=== PATIENT | male | born 1945 | race Caucasian/White ===

== ENCOUNTER 2018-08-11 10:55 | Inpatient (IN) | payer MEDICARE, MEDICAID, SELFPAY ==
[2018-07-28 09:45] VITALS: BMI 31.0
[2018-08-11] VITALS (16 sets, daily range): BP systolic 142–175; BP diastolic 50–100; PULSE 69–99; RESP 9–18; TEMP 36.1–36.8; O2SAT 93–99; BMI 31.0
--- NOTE | 2018-08-11 | DI.RAD.S_ITS ---
PROCEDURE: XR LUMBAR SPINE 2-3V INDICATIONS: L4-5 TLIF TECHNIQUE: 2 views of the lumbar spine were acquired. COMPARISON: None. FINDINGS: Spot fluoroscopic images demonstrating L4-L5 posterior spinal fixation with interbody cage. There is expected intraoperative alignment. Dictated by: Bartolome Gunter M.D. on 08/11/2018 at 16:33 Approved by: Bartolome Gunter M.D. on 08/11/2018 at 16:34
[2018-08-11] MEDS: LACTATED RINGERS 1,000 ML 42 ML IV ×2 (11:26→15:00)
[2018-08-11] MEDS: MIDAZOLAM 2 MG/2 ML VIAL 1 MG IV (11:51)
--- NOTE | 2018-08-11 13:03 | PM.PREOP ---
Pre-operative Note Interval Note History & Physical reviewed/Exam performed by Physician: Yes Changes to H&P: No
[2018-08-11] MEDS: CLINDAMYCIN 900 MG/50 ML PIGGYBACK 50 MG IV ×2 (13:36→21:25)
--- NOTE | 2018-08-11 14:21 | SUR.OPER ---
Prone on spine table, head in foam head support, padded chest and pelvic supports, gel pad at knees, lower legs supported by pillows; nipples, genitalia and toes free of pressure, arms secured on foam padded arm boards at <90 degrees abduction. Tape over blanket at thigh secured to table.
[2018-08-11] MEDS: BUPIVACAINE LIPOSOME 266 MG/20 ML VIAL INJ (14:46)
[2018-08-11] MEDS: BUPIVACAINE 0.25% W/ EPI 30 ML VIAL INJ (14:46)
--- NOTE | 2018-08-11 16:15 | P.OP_ITS ---
Operative Date/Time/Diagnoses Date of procedure: 08/11/18 Time of procedure: 13:12 Pre-op diagnosis: 1. L3-4, L4-5 spinal stenosis 2. L3-4, L4-5 spondylosis with radiculopathy Post-op diagnosis: same Procedure & Clinicians Procedure: 1. L4-5 Postero-lateral and posterior interbody fusion 2. L4-5 interbody cage placement. 3. L4-5 decompressive laminectomy with bilateral facetecomies 4. L4-5 Posterior non-segmental instrumentation 5. L3-4 hemilaminectomy 6. [place] of bone marrow from iliac crest 7. Utilization of microsurgical technique and operating microscope Same procedure as scheduled: Yes Indications: Patient has been having chronic back pain and worsening lumbar radiculopathy. Patient failed multiple conservative management with worsening pain weakness and numbness in her lower extremity. Patient has been having difficulty performing activity of daily living. After discussing risks benefits of treatment options, patient elected proceed with surgery. Surgeon: Larry Buckley Director Of Property Management: Mayela Mueller Click Yes if Unassisted: No Anesthesia Type: General Operative Notes Closure Type: primary Specimen(s): none sent Prosthetic devices, grafts, tissues, transplants, or devices: Globus revolve screws, Rise cage Estimated Blood Loss (mL): 50 Blood products transfused: none Procedure in detail: Patient was seen in the preoperative area. Risks and benefits of the surgery was discussed with the patient. Informed consent was obtained from the patient and placed in the chart. Surgical site was marked. Patient was taken to the operative room. General anesthesia was administered. Prophylactic antibiotic was given to the patient less than 30 min before the incision was made. Patient was placed into a prone position on the Aly table. Patient's back was then prepped and draped in the sterile fashion. Time- out was performed at this time. Using AP and lateral C-arm imaging the interval between L3-4, L4-5 was identified and marked on patient's back. A 2 inch incision 2 in from midline was made on the right side first. The fascia was incised in line with skin incision. Globus MARS retractors was placed inside the incision and docked onto the L4 lamina. Using microsurgical technique and operating microscope, a L4 laminectomy and L4-5 facetectomy was performed using a Kerrison rongeur. The disc space at L4-5 was identified. And a total diskectomy was performed at L4-5 level. The endplates were decorticated using a rasp and shaver. The total diskectomy and decortication was performed at L4-5 level in order to to accomplish a L4-5 fusion. The local bone from the laminectomy and facetectomy was saved for local bone grafting. After the total diskectomy and decortication was completed, Globus viacell bone graft material was combined with local bone that was harvested earlier. At this time, a separate skin is incision was made over the iliac crest. A Jamshidi needle was inserted into the iliac crest through a separate skin incision. 5 cc of bone marrow aspiration was obtained through the separate skin incision using a Jamshidi needle from the iliac crest. The bone marrow aspiration was combined with local bone and the via cell bone grafting material. The bone grafting material was placed into the L4-5 interbody space along with a expandable cage. The cage was expanded to its maximum height using the torque limiting screwdriver. At this time the MARS retractor was redirected over the L3 lamina. Using microsurgical technique and operating microscope, a L3 heminectomy was performed using the Kerrison rongeur. The ligamentum flavum was also resected at the side of the hemilaminectomy for further decompression of the epidural space. At this time a mirror image incision was made on the left side. The fascia was incised in line with the skin incision. Globus MARS retractor was inserted and docked onto the L4-5 posterolateral gutter. Using the power drill, posterior- lateral decortication was performed at L4-5 level until bleeding cortical bone was identified. The remaining bone grafting material was placed into the L4-5 posterior lateral gutter he order to accomplish posterolateral fusion at the L4- 5 level. Using the double C-arm technique, pedicle screws were placed into the L4 and L5 pedicles bilaterally. This was done by placing the Jamshidi needle into the pedicles, then placing the guidewires over the Jamshidi needle, and finally placing the cannulated screws over the guidewires bilaterally. After the pedicle screws were placed, 2 titanium rods was locked into the heads of the pedicle screws using locking caps and torque limiting screwdriver. After all the hardware was placed, and confirmed with AP and lateral C-arm imaging, the wound was then irrigated with sterile normal saline and packed with Ray-Destiny gauze for 3 min to accomplish hemostasis. After the gauze was removed the deep fascia was closed with #1 Vicryl suture. The subcutaneous layer was closed with 2-0 Vicryl. The skin was closed with skin vladislav. Patient tolerated the procedure well. There were no complications. Complications: none Condition: stable Disposition: PACU Plan for aftercare: Admit to inpatient hospital
[2018-08-11] MEDS: fentaNYL 100 MCG/2 ML INJ 50 MCG IV ×4 (16:28→16:56)
[2018-08-11] MEDS: HYDROMORPHONE 2 MG INJ 0.5 MG IV ×5 (16:30→18:30)
--- NOTE | 2018-08-11 17:34 | SUR.PHASEI ---
pt transferred to floor care in stable condition, vss. pt son in room upon arrival. pt alert and talking to RN during transport. bedside report given to ANNE Rowan at that time. Transferred care of pt to ANNE Rowan at that time in stable condition.
[2018-08-11] MEDS: SODIUM CHLORIDE 0.9% 1,000 ML 100 ML IV (19:28)
[2018-08-11] MEDS: OXYCODONE IR 10 MG TABLET PO (19:29)
--- NOTE | 2018-08-11 19:39 | PC.NURSE ---
5297 - Patient brought over from PACU in bed by nursing staff. Alert and oriented with pleasant affect. Able to move all extremities. Dressing to back C/D/I. Son at bedside. Oriented to room and call light, call light within reach.
[2018-08-11] MEDS: GABAPENTIN 600 MG TABLET PO (20:24)
[2018-08-11] MEDS: DOCUSATE 100 MG CAPSULE PO (20:24)
[2018-08-11] MEDS: DONEPEZIL 5 MG TABLET PO (20:24)
[2018-08-11] MEDS: CYCLOBENZAPRINE 10 MG TABLET PO (20:24)
[2018-08-11] MEDS: lamoTRIgine 100 MG TABLET PO (20:25)
[2018-08-11] MEDS: LOVASTATIN 20 MG TABLET 40 MG PO (20:25)
[2018-08-11] MEDS: MEMANTINE HCL 5 MG TABLET 10 MG PO (20:26)
[2018-08-11] MEDS: SENNOSIDES 8.6 MG TABLET 17.2 MG PO (20:26)
[2018-08-11] MEDS: HYDROMORPHONE 0.5 MG INJ IV (21:23)
[2018-08-11] MEDS: OXYCODONE IR 5 MG TABLET 10 MG PO (22:22)
[2018-08-12] MEDS: hydrOXYzine pamoate 25 MG CAPSULE PO ×4 (00:21→20:32)
[2018-08-12] MEDS: ACETAMINOPHEN 325 MG TABLET 650 MG PO (00:21)
[2018-08-12] MEDS: HYDROMORPHONE 0.5 MG INJ IV ×4 (02:26→15:43)
[2018-08-12] MEDS: MAG HYDROX/ALUM/SIMETH 30 ML UDC PO (03:02)
[2018-08-12] MEDS: OXYCODONE IR 5 MG TABLET 15 MG PO (03:46)
[2018-08-12 03:51] VITALS: BP 146/51; PULSE 84; RESP 18; TEMP 36.7; O2SAT 95
[2018-08-12 05:20] LABS: Hematocrit 34.5 % (41-53); Hemoglobin 11.4 g/dL (13.5-17.5)
[2018-08-12] MEDS: CLINDAMYCIN 900 MG/50 ML PIGGYBACK 50 MG IV (05:40)
[2018-08-12] MEDS: CYCLOBENZAPRINE 10 MG TABLET PO ×2 (05:51→20:32)
[2018-08-12] MEDS: GABAPENTIN 600 MG TABLET PO ×3 (05:51→20:33)
--- NOTE | 2018-08-12 06:09 | PC.NURSE ---
Patient has been awake most of the night, restless and anxious, c/o pain to back and right buttock. Refused oxycodone until 0400, 15mg Percolone given at that time. Previously treated pain with IV Dilaudid, Tylenol, and Vistaril prn. Also used ice packs and repositioning. He does not always comply with directions to not twist at waist or only log roll. Requested gabapentin and Flexeril early. VSS, SpO2 .94% on 2L, tried to use own C-pap, but could not get comfortable and caused increase anxiety.
[2018-08-12 07:23] VITALS: BP 150/69; PULSE 85; RESP 18; TEMP 37.2; O2SAT 97
[2018-08-12] MEDS: MEMANTINE HCL 5 MG TABLET 10 MG PO ×2 (08:40→20:34)
[2018-08-12] MEDS: DOCUSATE 100 MG CAPSULE PO ×2 (08:40→20:32)
[2018-08-12] MEDS: buPROPion SR 150 MG TAB PO (08:40)
[2018-08-12] MEDS: LISINOPRIL 10 MG TABLET PO (08:40)
[2018-08-12] MEDS: SODIUM CHLORIDE 0.9% FLUSH 10 ML IV ×2 (08:41→20:37)
[2018-08-12] MEDS: PARoxetine 20 MG TABLET PO (08:41)
[2018-08-12] MEDS: lamoTRIgine 100 MG TABLET PO ×2 (08:41→20:33)
[2018-08-12] MEDS: HYDROCODONE/ACET 10/325 TABLET 1 TAB PO ×4 (09:00→20:37)
--- NOTE | 2018-08-12 09:09 | CM.DANOTE ---
Addendum entered by Ivelisse Xiao R.N. 08/12/18 10:19: Confirmed that patient has history of PTSD, but not clear as to cause at this time. Original Note: DCP: Case received, EMR reviewed and met with patient. Introduced self and role. Obtained information from patient regarding his living situation and baseline health. DCP template assessment completed with information currently available. Patient is a 73 year old male who admitted yesterday morning to the care of the orthopedic team. PCP: Dr. Malik. Payer: confirmed: Medicare/Medicaid. Patient came to the hospital for a surgical procedure. He had L3-4, L4-5 laminectomy, secondary to history of spinal stenosis. Met briefly with patient in his room. Awake and alert. Stated that he lives in mental housing upstairs, called [facility]. He stated that he is independent, and drives. Has a son named Chris, who patient stated, is his POA. Attempted to reach son, did not answer. Donavan Hurd, orthopedic PA stated that his son is planning on helping him out when he goes home. Patient will be working with physical therapy today. P: DCP to continue to follow, and will collaborate with physical therapy team to ensure that he will be able to go home when stable. Ivelisse Xiao RN/Business Process Associate
--- NOTE | 2018-08-12 10:14 | P.PN_ITS ---
Subjective Date Patient Seen: 08/12/18 Time Patient Seen: 10:10 Interval history: Hospital day 2, postop day 1 following L3-4 hemilaminectomy, L4-5 TLIF, cage, posterior screw fixation by Dr. Buckley. He has remained stable postoperatively. He is currently in ICU. He has not been out of bed yet. No PT yet. He states that his right leg pain and numbness that he had preoperatively has improved but still present. Patient has been getting oxycodone for pain but would like to switch to hydrocodone. He had problem with addiction with oxycodone previously and does better with hydrocodone. Patient was anticipating 3 night stay in the hospital so that he could get home health. I informed him that he did not need 3 night stay for home health. He does live in an apartment building on the 2nd floor and has a full flight of stairs to go up to get to his apartment. His son is going to stay with him for 2 days when he comes home. Exam Vital Signs (past 8 hours): - 08/12/18 03:51 08/12/18 07:23 Temperature 98.0 F 99 F Pulse Rate 84 85 Respiratory Rate 18 18 Blood Pressure 146/51 H 150/69 H Pulse Oximetry 95 97 Oxygen Delivery Method Nasal Cannula Oxygen Flow Rate 0 Narrative Exam Narrative: Alert, oriented in no acute distress resting in bed. Back. Lumbar dressing is dry with a small area she had 0 in. Legs. No calf pain or swelling. Pulses symmetrical. Decreased sensation to right lower leg compared to left. Good strength on foot dorsiflexion plantar flexion. Objective Labs Result Diagrams: 08/12/18 04:36 Labs: Laboratory Results - last 24 hr 08/11/18 08/12/18 17:30 04:36 Hgb 11.4 L Hct 34.5 L Nasal Screen MRSA (PCR) Negative for mrsa Assessment & Plan Post-op Postoperative Procedures Operation Date: 08/11/18 12:45 Actual Procedures Side Surgeon p L3-4 Hemilaninectomy, L4-5 TLIF w/Posterior Instru. Larry Buckley MD Plan: Patient will work with PT today. Observe for improvement over the next 1-2 days and plan discharge to home. planner internship will work with patient on home health. Will change patient's pain medication to [place] 10/325 mg.
--- NOTE | 2018-08-12 11:04 | PT.IIE ---
Current Diagnoses Other spondylosis with radiculopathy, lumbosacral region (08/11/18) Spinal stenosis, lumbar region without neurogenic claudication (08/11/18) Dysphagia, unspecified (08/11/18) Surgery Performed Operation Date: 08/11/18 12:45 Actual Procedures p L3-4 Hemilaninectomy, L4-5 TLIF w/Posterior Instru. - Larry Buckley MD Surgical History (Last Updated 07/28/18 @ 12:10 by Liz Dyson RN) History of penile implant (Acute 07/02/18) Hx of tonsillectomy (Acute) Hx of urethrotomy (Acute ~05/2015) Status post epidural steroid injection (Acute) Medical History (Last Updated 07/28/18 @ 12:10 by Liz Dyson RN) Acquired hypothyroidism (Acute) Alcoholism (Acute) Allergic rhinitis (Acute) Anxiety (Acute) Arthritis (Acute) Asthma (Acute) Ataxia (Acute) Back pain (Acute) Miranda's esophagus (Acute) Bipolar 2 disorder (Acute) Chronic pain syndrome (Acute) Cognitive impairment (Acute) Compression fracture of T10 vertebra (Acute) Constipation (Acute) Diverticulitis (Acute) Dysphagia (Acute) Erectile dysfunction (Acute) GERD (gastroesophageal reflux disease) (Acute) HLD (hyperlipidemia) (Acute) HTN (hypertension) (Acute) History of substance abuse (Acute) Hyperopia of both eyes with astigmatism (Acute) Impaired fasting glucose (Acute) Insomnia (Acute) Lateral epicondylitis of right elbow (Acute) Locking finger joint (Acute) Lumbar degenerative disc disease (Acute) Male urinary stress incontinence (Acute) Melanoma (Acute) OCD (obsessive compulsive disorder) (Acute) Open fracture of left distal radius (Acute 04/18/17) PTSD (post-traumatic stress disorder) (Acute) Pneumonia (Acute) Prostate cancer (Acute ~11/2017) Sciatica (Acute) Seborrheic dermatitis (Acute) Sleep apnea (Acute) Spinal stenosis (Acute) Stomach ulcer (Acute) Stroke (Acute) Physical Therapy Inpatient Evaluation/Re-Eval M1 PT/OT-IP Prior Functional Status Start: 08/12/18 11:51 Freq: NEEDED Status: Active Protocol: Document 08/12/18 11:04 AB (Rec: 08/12/18 12:09 AB [id number]) Medical Review Prior Functional Status Medical History Reviewed Yes Communication able to make needs known Mobility and Gait pt stated that he is independent with all mobilities and ambulation using SPC; stated that he has balance issues and has a fall a year ago and prompted him to use a SPC. Social History Household Members none Living Arrangements Mcfp Number of Stairs To Enter/Railing? pt staed that he lives in a mental health housing apartment. pt lives on the 2nd floor. no steps to enter but has 20 steps with B rails to get into his 2nd floor apartment Home Environment Standard Height Toilet Tub/Shower Home Equipment Straight Cane Tub Transfer Bench Grab Bars In Shower Additional Social History Comment pt stated that a FWW will not fit in his apartment. pt stated that his son can stay with him for 2 days and afterwards will hire homehealth care aides. M2 PT-IP Current Condition Start: 08/12/18 11:51 Freq: NEEDED Status: Active Protocol: Document 08/12/18 11:04 AB (Rec: 08/12/18 12:09 AB [id number]) Physical Therapy Current Condition Current Condition Evaluation Date 08/12/18 Treatment Diagnosis s/p L4-5 fusion/lami; L3-4 hemilami; difficulty in walking Onset Date 08/11/18 Precautions Lumbar Precautions Log Roll No Twisting Limit Bending Lifting Restriction of 10 lbs Gait Belt above Incisional Area M3 PT-IP Subjective Start: 08/12/18 11:51 Freq: NEEDED Status: Active Protocol: Document 08/12/18 11:04 AB (Rec: 08/12/18 12:09 AB [id number]) Subjective Physical Therapy Visit Type Type Initial Evaluation Visit Start Time 11:04 Visit Stop Time 11:44 Total Visit Minutes 40 Number of SAFE AND VAULT MECHANIC Visits 0 Physical Therapy Visit Comments Patient Comments pt agreeable to do PT Therapy Pain Assessment Pain When Pain Assessed At Rest Pain Present Pain Present Pain Reported Location lower back Intensity 8 Scale Used Numeric (1 - 10) Pain Management Techniques Apply Cold Re-positioning Timing of Activity with Medications M4 PT-IP Mobility and Gait Start: 08/12/18 11:51 Freq: NEEDED Status: Active Protocol: Document 08/12/18 11:04 AB (Rec: 08/12/18 12:09 AB [id number]) PT-Bed Mobility Assessment Supine to Sit Supine to Sit Minimal Assistance Scooting Scooting to Edge of Bed Standby Assistance PT-Transfer Assessment Sit to and From Stand Sit to and from Stand Minimal Assistance Equipment Transfer Assistive Device Gait Belt Front Wheeled Walker Orthotic/Prosthetic Devices or Brace: No Transfers Transfer Destination Chair Transfer Technique pt ambulated using FWW Transfer Ability Level of Assist Minimal Assistance 1 Person Assistance Use of Upper Extremities Gait Assessment Gait Gait Assistance Required: Minimum Assistance Distance (Feet) 50 Able to Maintain Weight Bearing Status Yes During Gait Assistive Devices Assistive Device Gait Belt Front Wheeled Walker Orthotic/Prosthetic Devices or Brace: No Gait Deviations General Gait Pattern Antalgic Decreased Stride Length Decreased Feet Clearance Step-to Gait Factors Limiting Gait Function Factors Limiting Gait Function Decreased Activity Tolerance Decreased Sensation Decreased Strength Difficulty Following Directions Limited Range of Motion Pain Poor Balance Poor Safety Awareness Comments Gait Comments pt ambulated using FWW min A and cues ~ 50 ft. c/o dizziness midway ambulation but pt was able to get back in his room . chair has to be positioned closer to pt. pt presents with shuffling gait with decrease B hips/knees flexion. BP prior to ambulation 150/71 after ambulation: 138/69 PT-Balance Assessment Sitting Balance and Reactions Static Sitting Balance Ability Good Dynamic Sitting Balance Ability Fair Standing Balance and Reactions Static Standing Balance Ability Fair Dynamic Standing Balance Ability Fair Device Used FWW M5 PT-IP Objective Assessments Start: 08/12/18 11:51 Freq: NEEDED Status: Active Protocol: Document 08/12/18 11:04 AB (Rec: 08/12/18 12:09 [id number]) Orientation Orientation/Cognition Level of Alertness Alert Orientation Name Age Place Situation Language Function Ability No Deficits Noted Safety Awareness Decreased Safety Awareness Memory Description Short Term Impaired Gross Range of Motion Lower Extremity ROM Assessment Within Functional Limits Strength Lower Extremity Strength Assessment Bilaterally Impaired Comments Strength Comments RLE : 3+/5 LLE: 4-/5 Coordination Assessment Gross Coordination Gross Coordination WNL Sensation Assessment Sensation Light Touch Impaired Sensation Description Numbness Comments Sensation Comments c/o decrease sensation on RLE Muscle Tone Muscle Tone WNL Yes M6 PT-IP Treatment Start: 08/12/18 11:51 Freq: NEEDED Status: Active Protocol: Document 08/12/18 11:04 AB (Rec: 08/12/18 12:09 AB [id number]) Physical Therapy Treatment Education Education Provided Precautions Weight Bearing Status Post-Op Packet Safety M7 PT-IP Assessment and Plan Start: 08/12/18 11:51 Freq: NEEDED Status: Active Protocol: Document 08/12/18 11:04 AB (Rec: 08/12/18 12:09 AB [id number]) PT Summary Assessment and Plan Potential Rehabilitation Potential Good Status of Condition at Evaluation Evolving Summary Impairments Pain ROM Strength Balance Coordination Sensation Tone Cognition Bed Mobility Transfers Gait Activity Tolerance Assessment Summary pt requiring min A with transfers and ambulation but unable to ambulate far. pt has limited support at home and will benefit from SNF rehab to improve strength and functional independence. Goals Bed Mobility Goal Independent Transfer Goal Independent Front Wheeled Walker Gait Goal Standby Assistance Front Wheel Walker Gait Distance 200 Other Goals ambulation using SPC ~ 100 ft up/down 20 steps with B rails SBA Days to Meet Goals 10 Frequency of Treatment Frequency Of Treatment Twice a Day Treatment Plan Physical Therapy Treatment Plan Bed Mobility Training Transfer Training Gait Training Therapeutic Exercise Balance Retraining Post Op Education Discharge Planning Hot or Cold Pack Neuromuscular Re-ed Coordination Retraining Manual Therapy Other Recommendations and Next Treatment bed mobility, transfers, Focus ambulation, stair climbing Recommendations To Nursing Amount of Assist Needed 1 Person Assist Discharge Recommendations PT Discharge Recommendations Home with / Assist Home Health Equipment Needed for Home Before FWW if not safe with use of Discharge SPC
--- NOTE | 2018-08-12 14:04 | PC.NURSE ---
pt with stable vital signs anis afebrile- frequent moans and groans coming from his room- had long conversatin about pain rx and he is not wishing to use oxycodone at all ( he has had previous problems with this drug) he would prefer hydrocodone and order received for same- this has been effective thus far. Working with pt/ot. dressing to back dry and intact with couple old strike thru spots. he requires freq reminders for his spine precautions : no lifting or twisting or bending- voiding adequate amounts via urinal no bm as of yet
--- NOTE | 2018-08-12 14:15 | PT.IPTN ---
Current Diagnoses Other spondylosis with radiculopathy, lumbosacral region (08/11/18) Spinal stenosis, lumbar region without neurogenic claudication (08/11/18) Dysphagia, unspecified (08/11/18) Surgery Performed Operation Date: 08/11/18 12:45 Actual Procedures p L3-4 Hemilaninectomy, L4-5 TLIF w/Posterior Instru. - Larry Buckley MD Physical Therapy Treatment Note M2 PT-IP Current Condition Start: 08/12/18 11:51 Freq: NEEDED Status: Active Protocol: Document 08/12/18 11:04 AB (Rec: 08/12/18 12:09 AB [id number]) Physical Therapy Current Condition Current Condition Evaluation Date 08/12/18 Treatment Diagnosis s/p L4-5 fusion/lami; L3-4 hemilami; difficulty in walking Onset Date 08/11/18 Precautions Lumbar Precautions Log Roll No Twisting Limit Bending Lifting Restriction of 10 lbs Gait Belt above Incisional Area M3 PT-IP Subjective Start: 08/12/18 11:51 Freq: NEEDED Status: Active Protocol: Document 08/12/18 14:15 AB (Rec: 08/12/18 15:52 AB [id number]) Subjective Physical Therapy Visit Type Type Treatment Note Visit Start Time 14:15 Visit Stop Time 14:30 Total Visit Minutes 15 Number of HAND MARKER Visits 0 Physical Therapy Visit Comments Patient Comments pt agreeable to do PT Therapy Pain Assessment Pain When Pain Assessed At Rest Pain Present Pain Present Pain Reported Location lower back Intensity 8 Scale Used Numeric (1 - 10) Pain Management Techniques Re-positioning Timing of Activity with Medications M4 PT-IP Mobility and Gait Start: 08/12/18 11:51 Freq: NEEDED Status: Active Protocol: Document 08/12/18 14:15 AB (Rec: 08/12/18 15:52 AB [id number]) PT-Transfer Assessment Sit to and From Stand Sit to and from Stand Minimal Assistance Equipment Transfer Assistive Device Bed Rail Front Wheeled Walker Orthotic/Prosthetic Devices or Brace: No Comments Mobility Comments pt completed sit <>stand x 4 reps min A and max cues for techniques and safety Gait Assessment Gait Gait Assistance Required: Minimum Assistance Distance (Feet) 40 Able to Maintain Weight Bearing Status Yes During Gait Assistive Devices Assistive Device Gait Belt Front Wheeled Walker Orthotic/Prosthetic Devices or Brace: No Gait Deviations General Gait Pattern Antalgic Decreased Stride Length Decreased Feet Clearance Factors Limiting Gait Function Factors Limiting Gait Function Decreased Activity Tolerance Decreased Strength Limited Range of Motion Pain Poor Balance Poor Safety Awareness Comments Gait Comments pt c/o dizziness during ambulation and has to sit down . BP checked 133/76 M5 PT-IP Objective Assessments Start: 08/12/18 11:51 Freq: NEEDED Status: Active Protocol: Document 08/12/18 11:04 AB (Rec: 08/12/18 12:09 AB [id number]) Orientation Orientation/Cognition Level of Alertness Alert Orientation Name Age Place Situation Language Function Ability No Deficits Noted Safety Awareness Decreased Safety Awareness Memory Description Short Term Impaired Gross Range of Motion Lower Extremity ROM Assessment Within Functional Limits Strength Lower Extremity Strength Assessment Bilaterally Impaired Comments Strength Comments RLE : 3+/5 LLE: 4-/5 Coordination Assessment Gross Coordination Gross Coordination WNL Sensation Assessment Sensation Light Touch Impaired Sensation Description Numbness Comments Sensation Comments c/o decrease sensation on RLE Muscle Tone Muscle Tone WNL Yes M6 PT-IP Treatment Start: 08/12/18 11:51 Freq: NEEDED Status: Active Protocol: Document 08/12/18 14:15 AB (Rec: 08/12/18 15:52 AB [id number]) Physical Therapy Treatment Education Education Provided Precautions Safety Other Treatments Other Treatment Performed ambulation, bed mobility M7 PT-IP Assessment and Plan Start: 08/12/18 11:51 Freq: NEEDED Status: Active Protocol: Document 08/12/18 14:15 AB (Rec: 08/12/18 15:52 AB [id number]) PT Summary Assessment and Plan Potential Rehabilitation Potential Fair Summary Impairments Pain ROM Strength Balance Coordination Sensation Tone Cognition Bed Mobility Transfers Gait Activity Tolerance Progress Towards Goals Slow Progress due to Pain Slow Progress due to Activity Tolerance Assessment Summary pt requiring min A with transfers and ambulation using FWW. Ambulation limited due to c/o dizziness. pt requires max cues with all tasks. pt lives alone and stated that a FWW will not fit in his apartment but pt is not appropriate for cane use at this time. will continue to assess but pt currently will need SNF rehab. Goals Bed Mobility Goal Independent Transfer Goal Independent Front Wheeled Walker Gait Goal Standby Assistance Front Wheel Walker Gait Distance 200 Other Goals ambulation using SPC ~ 100 ft up/down 20 steps with B rails SBA Days to Meet Goals 10 Frequency of Treatment Frequency Of Treatment Twice a Day Treatment Plan Physical Therapy Treatment Plan Bed Mobility Training Transfer Training Gait Training Therapeutic Exercise Balance Retraining Post Op Education Discharge Planning Hot or Cold Pack Neuromuscular Re-ed Coordination Retraining Manual Therapy Other Recommendations and Next Treatment bed mobility, transfers, Focus ambulation, stair climbing Recommendations To Nursing Amount of Assist Needed 1 Person Assist Discharge Recommendations PT Discharge Recommendations SNF Rehab Equipment Needed for Home Before FWW if not safe with use of Discharge SPC
[2018-08-12 15:37] VITALS: BP 139/71; PULSE 75; RESP 18; TEMP 36.9; O2SAT 98
--- NOTE | 2018-08-12 15:55 | CM.DPC ---
Addendum entered by Ivelisse Xiao R.N. 08/12/18 16:10: Is noted that patient is stable, as far as PTSD, this was a chronic condition. Original Note: DCP cONT: Noted latest physical therapy note, that alf is recommended. He lives on second floor, and would have to use several steps to get to his apartment. Patient would need to be here until 08/14. Discussion will need to be had with patient again regarding alf. Orthopedist will also need to be updated as well. Will need to confirm inpatient status. P: DCP to follow up with patient regarding looking into skilled facilities. Also, update orthopedist. Ivelisse Xiao RN/Steward/[employer]ward[employer]
--- NOTE | 2018-08-12 18:26 | OT.IP.EVAL ---
Current Diagnoses Other spondylosis with radiculopathy, lumbosacral region (08/11/18) Spinal stenosis, lumbar region without neurogenic claudication (08/11/18) Dysphagia, unspecified (08/11/18) Surgery Performed Operation Date: 08/11/18 12:45 Actual Procedures p L3-4 Hemilaninectomy, L4-5 TLIF w/Posterior Instru. - Larry Bukcley MD Past Medical History (Last Updated 07/28/18 @ 12:10 by Liz Dyson RN) Acquired hypothyroidism (Acute) Alcoholism (Acute) Allergic rhinitis (Acute) Anxiety (Acute) Arthritis (Acute) Asthma (Acute) Ataxia (Acute) Back pain (Acute) Miranda's esophagus (Acute) Bipolar 2 disorder (Acute) Chronic pain syndrome (Acute) Cognitive impairment (Acute) Compression fracture of T10 vertebra (Acute) Constipation (Acute) Diverticulitis (Acute) Dysphagia (Acute) Erectile dysfunction (Acute) GERD (gastroesophageal reflux disease) (Acute) HLD (hyperlipidemia) (Acute) HTN (hypertension) (Acute) History of substance abuse (Acute) Hyperopia of both eyes with astigmatism (Acute) Impaired fasting glucose (Acute) Insomnia (Acute) Lateral epicondylitis of right elbow (Acute) Locking finger joint (Acute) Lumbar degenerative disc disease (Acute) Male urinary stress incontinence (Acute) Melanoma (Acute) OCD (obsessive compulsive disorder) (Acute) Open fracture of left distal radius (Acute 04/18/17) PTSD (post-traumatic stress disorder) (Acute) Pneumonia (Acute) Prostate cancer (Acute ~11/2017) Sciatica (Acute) Seborrheic dermatitis (Acute) Sleep apnea (Acute) Spinal stenosis (Acute) Stomach ulcer (Acute) Stroke (Acute) Surgical History (Last Updated 07/28/18 @ 12:10 by Liz Dyson RN) History of penile implant (Acute 07/02/18) Hx of tonsillectomy (Acute) Hx of urethrotomy (Acute ~05/2015) Status post epidural steroid injection (Acute) Occupational Therapy Inpatient Evaluation/Re-Eval M1 PT/OT-IP Prior Functional Status Start: 08/12/18 17:45 Freq: NEEDED Status: Active Protocol: Document 08/12/18 14:18 [facility] (Rec: 08/12/18 18:25 [facility] [id number]) Medical Review Prior Functional Status Medical History Reviewed Yes Communication able to make needs known Mobility and Gait pt stated that he is independent with all mobilities and ambulation using SPC; stated that he has balance issues and has a fall a year ago and prompted him to use a SPC. Activities of Daily Living and IADL's Pt states able to do all ADl's , IADl's, drives and take care of his own medications and bills. Social History Household Members none Living Arrangements House Number of Stairs To Enter/Railing? pt staed that he lives in a mental health housing apartment. pt lives on the 2nd floor. no steps to enter but has 20 steps with B rails to get into his 2nd floor apartment Home Environment Standard Height Toilet Tub/Shower Home Equipment Straight Cane Shower Seat with Backrest Grab Bars In Shower Additional Social History Comment pt stated that a FWW will not fit in his apartment. pt stated that his son can stay with him for 2 days and afterwards will hire homehealth care aides. M2 OT-IP Current Condition Start: 08/12/18 17:45 Freq: Status: Active Protocol: Document 08/12/18 14:18 [facility] (Rec: 08/12/18 18:25 [facility] [id number]) Occupational Therapy Current Condition Current Condition Evaluation Date 08/12/18 Treatment Diagnosis L3-4 hemilaminectomy, L4-5 TLIF, muscle weakness Diagnosis Onset Date 08/11/18 Post Operative Precautions Lumbar Precautions Log Roll No Twisting Limit Bending Lifting Restriction of 10 lbs Gait Belt above Incisional Area Weight Bearing Status Weight Bearing Status Weight Bear as Tolerated M3 OT- IP Subjective and Pain Start: 08/12/18 17:45 Freq: Status: Active Protocol: Document 08/12/18 14:18 [facility] (Rec: 08/12/18 18:25 [facility] [id number]) OT- Subjective Occupational Therapy Visit Type Type Initial Evaluation Visit Start Time 14:18 Visit Stop Time 14:48 Total Visit Minutes 30 Occupational Therapy Visit Comments Patient Comments Pt agreeable to get up. Patient/Caregiver Goals Pt wanting to go to skilled rehab prior to going home. OT Pain Assessment Pain When Pain Assessed At Rest Pain Present Pain Present Pain Reported Location lower back Intensity 8 Scale Used Numeric (1 - 10) M4 OT- IP ADL's Start: 08/12/18 17:45 Freq: Status: Active Protocol: Document 08/12/18 14:18 [facility] (Rec: 08/12/18 18:25 [facility] [id number]) OT ADL-Grooming Comments OT Grooming Comments Not completed. OT ADL-Dressing General Eval Lower Body Dressing Ability Minimal Assistance Comments OT Dressing Comments Pt able to comfortable cross his legs over to don/doff socks, however was easier to use socks aid to don/doff sock . OT ADL-Toileting Comments OT Toileting Comments Pt educated can use FWW to stand over the toilet to urinate. Also better to stand with wipe after a bowel movement. OT ADL-Bathing Comments OT Bathing Comments To try tomorrow. M5 OT- IP IADL's Start: 08/12/18 17:45 Freq: Status: Active Protocol: Document 08/12/18 14:18 [facility] (Rec: 08/12/18 18:25 [facility] [id number]) OT-Instrumental Activities of Daily Living Home Safety Awareness Ability to Problem Solve Emergency Unable to Problem Solve Situations Home Safety Comments Pt needing increased time to solve home safety, not sure what to do in case of toilet overflowing, and what to do in case of a fire in the oven. Medication Management Medication Management Comments Pt states does all his medications, money management, and drives. M6 OT- IP Functional Cognition Start: 08/12/18 17:45 Freq: Status: Active Protocol: Document 08/12/18 14:18 [facility] (Rec: 08/12/18 18:25 [facility] [id number]) Cognitive Factors Limiting Selfcare Function Cognitive Ability Level of Alertness Alert Patient Orientation Name Place Situation Attention Span Ability Capable of Focused Attention Capable of Sustained Attention Ability to Follow Commands Able to Follow One Step Commands Memory Description Short Term Impaired Safety Awareness Decreased Ability to Apply Precautions Underestimates Need for Assistance Problem Solving Ability Needs Assist to Identify Solutions Cognitive Comments Cognitive Assessment Comments Pt able to follow simple commands, decreased safety awareness and needing cues not to twist. M7 OT- IP Mobility and Balance Start: 08/12/18 17:45 Freq: Status: Active Protocol: Document 08/12/18 14:18 [facility] (Rec: 08/12/18 18:25 [facility] [id number]) OT-Transfer Assessment Sit to and From Stand Sit to and from Stand Minimal Assistance Transfers Transfer Ability Minimal Assistance Technique Transfer Destination Chair Wheelchair Transfer Technique Stand Step Pivot Devices Transfer Assistive Devices Gait Belt Front Wheeled Walker Comments Mobility Comments BELA to stand and needing MAX A for sequence and safety to stand to FWW. Pt complaingin of being dizzy and BP 133/76. OT- Balance Assessment Sitting Balance and Reactions Static Sitting Balance Ability Normal Dynamic Sitting Balance Ability Good Standing Balance and Reactions Static Standing Balance Ability Fair M8 OT- IP Objective Assessments Start: 08/12/18 17:45 Freq: Status: Active Protocol: Document 08/12/18 14:18 [facility] (Rec: 08/12/18 18:25 [facility] [id number]) OT Gross Range of Motion Upper Extremity Range of Motion Assessment Within Functional Limits OT Strength Comments Strength Comments LUE 4+/5, RUE 4/5 OT-Muscle Tone Assessment Muscle Tone WNL Yes M9 OT- IP Assessment and Plan Start: 08/12/18 17:45 Freq: Status: Active Protocol: Document 08/12/18 14:18 [facility] (Rec: 08/12/18 18:25 [facility] [id number]) OT Summary Assessment and Plan Potential Rehabilitation Potential Good Analytic Complexity at Evaluation Low Summary OT Impairments Pain Strength Balance Functional Cognition Functional Mobility Grooming Dressing Toileting Bathing Toilet Transfers Shower Transfers Progress Towards Goals Slow Progress due to Pain Slow Progress due to Medical Issues Slow Progress due to Activity Tolerance Slow Progress due to Cognition Assessment Summary Pt low complexity and main barrier are steps at home in addition pt states will not be able to use FWW in his apartment, and needing MAX vc for safety awareness. Pt would benefit from short rehab stay prior to going home. Goals Grooming Goal Independent Dressing Goal Independent Toileting Goal Independent Bathing Goal Standby Assistance Toilet Transfer Goal Independent Shower Transfer Goal Standby Assistance Patient/Caregiver Education Goal Demonstrate Post-Op Precautions Days to Meet Goals 7 Frequency of Treatment Frequency Of Treatment Once a Day Treatment Plan OT Treatment Plan ADL Training Functional Cognition Training Functional Mobility Patient/Family Education Discharge Planning Other Treatment Recommendations and Next Shower, standing for grooming. Treatment Focus OT goals based on use of FWW initially and then with SPC. Discharge Recommendations OT Discharge Recommendations SNF Rehab Other Discharge Recommendations Pending progress SNF versus home with home health.
[2018-08-12 19:54] VITALS: BP 133/65; PULSE 72; RESP 19; TEMP 36.4; O2SAT 97
[2018-08-12] MEDS: LOVASTATIN 20 MG TABLET 40 MG PO (20:33)
[2018-08-12] MEDS: DONEPEZIL 5 MG TABLET PO (20:33)
[2018-08-12] MEDS: MELATONIN 3 MG TABLET 18 MG PO (20:34)
[2018-08-12] MEDS: SENNOSIDES 8.6 MG TABLET 17.2 MG PO (20:34)
--- NOTE | 2018-08-12 22:02 | PC.NURSE ---
hiral note pt up in chair until 21:45. Dressing dry and intact to back. Pt takes small quick steps. Needs cues to remind not to twist.
[2018-08-13 00:20] VITALS: BP 146/72; PULSE 76; RESP 18; TEMP 36.8; O2SAT 95
[2018-08-13] MEDS: HYDROCODONE/ACET 10/325 TABLET 1 TAB PO ×5 (00:59→23:10)
[2018-08-13] MEDS: hydrOXYzine pamoate 25 MG CAPSULE PO ×3 (01:48→12:00)
[2018-08-13] MEDS: HYDROMORPHONE 0.5 MG INJ IV ×2 (01:51→08:30)
[2018-08-13 02:31] VITALS: O2SAT 96
[2018-08-13 07:58] VITALS: BP 144/60; PULSE 76; RESP 20; TEMP 36.9; O2SAT 97
[2018-08-13] MEDS: MEMANTINE HCL 5 MG TABLET 10 MG PO ×2 (08:27→20:50)
[2018-08-13] MEDS: SODIUM CHLORIDE 0.9% FLUSH 10 ML IV ×2 (08:27→20:53)
[2018-08-13] MEDS: buPROPion SR 150 MG TAB PO (08:27)
[2018-08-13] MEDS: LISINOPRIL 10 MG TABLET PO (08:27)
[2018-08-13] MEDS: lamoTRIgine 100 MG TABLET PO ×2 (08:27→20:48)
[2018-08-13] MEDS: DOCUSATE 100 MG CAPSULE PO ×2 (08:27→20:47)
[2018-08-13] MEDS: PARoxetine 20 MG TABLET PO (08:27)
[2018-08-13] MEDS: CYCLOBENZAPRINE 10 MG TABLET PO ×2 (08:27→20:47)
[2018-08-13] MEDS: GABAPENTIN 600 MG TABLET PO ×3 (08:28→20:48)
[2018-08-13] MEDS: MAGNESIUM HYDROXIDE 30 ML UDC PO (08:30)
--- NOTE | 2018-08-13 09:36 | PC.NURSE ---
Addendum entered by Ratna Garcia R.N. 08/13/18 14:32: pt planning transfer to snf at time of discharge- drinking lots of h20, and voiding per urinal- still needs bm given milk of magnesia and prune juice - declined shower and oral care- was waiting for ot to assist Original Note: PT REPORTS GOOD NIGHTS SLEEP- MEDICATED THIS AM WITH PO HYDROCODONE
--- NOTE | 2018-08-13 10:40 | PT.IPTN ---
Current Diagnoses Other spondylosis with radiculopathy, lumbosacral region (08/11/18) Spinal stenosis, lumbar region without neurogenic claudication (08/11/18) Dysphagia, unspecified (08/11/18) Surgery Performed Operation Date: 08/11/18 12:45 Actual Procedures p L3-4 Hemilaninectomy, L4-5 TLIF w/Posterior Instru. - Larry Buckley MD Physical Therapy Treatment Note M2 PT-IP Current Condition Start: 08/12/18 11:51 Freq: NEEDED Status: Active Protocol: Document 08/12/18 11:04 AB (Rec: 08/12/18 12:09 AB [id number]) Physical Therapy Current Condition Current Condition Evaluation Date 08/12/18 Treatment Diagnosis s/p L4-5 fusion/lami; L3-4 hemilami; difficulty in walking Onset Date 08/11/18 Precautions Lumbar Precautions Log Roll No Twisting Limit Bending Lifting Restriction of 10 lbs Gait Belt above Incisional Area M3 PT-IP Subjective Start: 08/12/18 11:51 Freq: NEEDED Status: Active Protocol: Document 08/13/18 10:40 [facility]GD (Rec: 08/13/18 11:40 GGD [id number]) Subjective Physical Therapy Visit Type Type Treatment Note Visit Start Time 10:25 Visit Stop Time 10:40 Total Visit Minutes 20 Number of GLASS CURVATURE GAUGER Visits 1 Physical Therapy Visit Comments Patient Comments Pt willing to work with therapy. Therapy Pain Assessment Pain When Pain Assessed At Rest Pain Present Pain Present Pain Reported M4 PT-IP Mobility and Gait Start: 08/12/18 11:51 Freq: NEEDED Status: Active Protocol: Document 08/13/18 10:40 [facility]GD (Rec: 08/13/18 11:40 GGD [id number]) PT-Transfer Assessment Sit to and From Stand Sit to and from Stand Minimal Assistance Moderate Assistance Equipment Transfer Assistive Device Front Wheeled Walker Orthotic/Prosthetic Devices or Brace: No Transfers Transfer Destination Chair Transfer Ability Level of Assist Minimal Assistance 1 Person Assistance Use of Upper Extremities Comments Mobility Comments sit <> stand x 3 Gait Assessment Gait Gait Assistance Required: Contact Guard Assist Minimum Assistance Distance (Feet) 80 Able to Maintain Weight Bearing Status Yes During Gait Assistive Devices Assistive Device Gait Belt Front Wheeled Walker Orthotic/Prosthetic Devices or Brace: No Gait Deviations General Gait Pattern Antalgic Decreased Stride Length Decreased Feet Clearance Factors Limiting Gait Function Factors Limiting Gait Function Decreased Activity Tolerance Decreased Strength Limited Range of Motion Pain Poor Balance Poor Safety Awareness Comments Gait Comments pt need min A for FWW management. M5 PT-IP Objective Assessments Start: 08/12/18 11:51 Freq: NEEDED Status: Active Protocol: Document 08/12/18 11:04 AB (Rec: 08/12/18 12:09 AB [id number]) Orientation Orientation/Cognition Level of Alertness Alert Orientation Name Age Place Situation Language Function Ability No Deficits Noted Safety Awareness Decreased Safety Awareness Memory Description Short Term Impaired Gross Range of Motion Lower Extremity ROM Assessment Within Functional Limits Strength Lower Extremity Strength Assessment Bilaterally Impaired Comments Strength Comments RLE : 3+/5 LLE: 4-/5 Coordination Assessment Gross Coordination Gross Coordination WNL Sensation Assessment Sensation Light Touch Impaired Sensation Description Numbness Comments Sensation Comments c/o decrease sensation on RLE Muscle Tone Muscle Tone WNL Yes M6 PT-IP Treatment Start: 08/12/18 11:51 Freq: NEEDED Status: Active Protocol: Document 08/13/18 10:40 GGD (Rec: 08/13/18 11:40 GGD [id number]) Physical Therapy Treatment Education Education Provided Precautions Safety M7 PT-IP Assessment and Plan Start: 08/12/18 11:51 Freq: NEEDED Status: Active Protocol: Document 08/13/18 10:40 GGD (Rec: 08/13/18 11:40 GGD [id number]) PT Summary Assessment and Plan Summary Assessment Summary Pt needed min to mod A for sit to stand. He needed mod cues for gait for foot clearance. Pt would benefit from SNF rehab before D/C home. Frequency of Treatment Frequency Of Treatment Twice a Day Treatment Plan Physical Therapy Treatment Plan Bed Mobility Training Transfer Training Gait Training Therapeutic Exercise Balance Retraining Post Op Education Discharge Planning Hot or Cold Pack Neuromuscular Re-ed Coordination Retraining Manual Therapy Other Recommendations and Next Treatment bed mobility, transfers, Focus ambulation, stair climbing Recommendations To Nursing Amount of Assist Needed 1 Person Assist Discharge Recommendations PT Discharge Recommendations SNF Rehab
--- NOTE | 2018-08-13 11:14 | PM.PNPO.1 ---
Subjective Date Patient Seen: 08/13/18 Time Patient Seen: 08:30 Interval history: Patient is POD#2 s/p L3-4 hemilaminectomy, L4-5 TLIF, cage, posterior screw fixation by Dr. Buckley. He remains stable. His pain is well controlled but he does note is worse on the right. Worked with PT yesterday but states had great difficulty. Deneis chest pain, shortness of breath, fevers, chills. Exam Vital Signs (past 8 hours): - 08/13/18 07:58 Temperature 98.4 F Pulse Rate 76 Respiratory Rate 20 Blood Pressure 144/60 H Pulse Oximetry 97 Oxygen Delivery Method CPAP Oxygen Flow Rate 0 Narrative Exam Narrative: 73 year old male sitting in chair. Alert and oriented in no acute distress. Dressing in place over lumbar spine is clean, dry, and intact. Sensation intact to light touch in distal extremity. Palpable pulses. Calves soft, nontender. Objective Labs Result Diagrams: 08/12/18 04:36 Assessment & Plan Post-op Postoperative Procedures Operation Date: 08/11/18 12:45 Actual Procedures Side Surgeon p L3-4 Hemilaninectomy, L4-5 TLIF w/Posterior Instru. Larry Buckley MD Patient is recovering well, but remains slow to mobilize. He is greatly concerned about going home at this point and after discussion with both physical therapy and care management he would like to consider SNF. He will likely be ready for discharge to SNF tomorrow.
[2018-08-13] MEDS: ACETAMINOPHEN 325 MG TABLET 650 MG PO ×2 (11:22→22:00)
--- NOTE | 2018-08-13 14:24 | PT.IPTN ---
Current Diagnoses Other spondylosis with radiculopathy, lumbosacral region (08/11/18) Spinal stenosis, lumbar region without neurogenic claudication (08/11/18) Dysphagia, unspecified (08/11/18) Surgery Performed Operation Date: 08/11/18 12:45 Actual Procedures p L3-4 Hemilaninectomy, L4-5 TLIF w/Posterior Instru. - Larry Buckley MD Physical Therapy Treatment Note M2 PT-IP Current Condition Start: 08/12/18 11:51 Freq: NEEDED Status: Active Protocol: Document 08/12/18 11:04 AB (Rec: 08/12/18 12:09 AB [id number]) Physical Therapy Current Condition Current Condition Evaluation Date 08/12/18 Treatment Diagnosis s/p L4-5 fusion/lami; L3-4 hemilami; difficulty in walking Onset Date 08/11/18 Precautions Lumbar Precautions Log Roll No Twisting Limit Bending Lifting Restriction of 10 lbs Gait Belt above Incisional Area M3 PT-IP Subjective Start: 08/12/18 11:51 Freq: NEEDED Status: Active Protocol: Document 08/13/18 14:20 [facility] (Rec: 08/13/18 14:24 [facility] [id number]) Subjective Physical Therapy Visit Type Type Treatment Note Visit Start Time 13:50 Visit Stop Time 14:15 Total Visit Minutes 25 Number of SCRAP IRON LOADER Visits 0 Physical Therapy Visit Comments Patient Comments Pt willing to work with therapy. Therapy Pain Assessment Pain When Pain Assessed At Rest Pain Present Pain Present Pain Reported Location lower back Description Aching Pressure Pain Management Techniques Apply Cold Re-positioning Timing of Activity with Medications M4 PT-IP Mobility and Gait Start: 08/12/18 11:51 Freq: NEEDED Status: Active Protocol: Document 08/13/18 14:20 [facility] (Rec: 08/13/18 14:24 [facility] [id number]) PT-Transfer Assessment Sit to and From Stand Sit to and from Stand Minimal Assistance Moderate Assistance Use of Upper Extremities Equipment Transfer Assistive Device Front Wheeled Walker Orthotic/Prosthetic Devices or Brace: No Transfers Transfer Destination Chair Comments Mobility Comments Pt did sit to stand from chair with mod A then amb then was able to stand again with min A and tried about 10 times to do it himself and was able to do 1/10 times with full stand up to FWW CGA, but was very unbalanced when working on sit to stand Gait Assessment Gait Gait Assistance Required: Contact Guard Assist Minimum Assistance Distance (Feet) 100 Able to Maintain Weight Bearing Status Yes During Gait Assistive Devices Assistive Device Gait Belt Front Wheeled Walker Orthotic/Prosthetic Devices or Brace: No Gait Deviations General Gait Pattern Antalgic Decreased Stride Length Decreased Feet Clearance Factors Limiting Gait Function Factors Limiting Gait Function Decreased Activity Tolerance Decreased Strength Limited Range of Motion Pain Poor Balance Poor Safety Awareness Comments Gait Comments Pt required cuieng for staying inside walker and lifting his feet as he sometimes did not lift LLE enough to clear ground and would require min A for balance. Min A required fro turning. M5 PT-IP Objective Assessments Start: 08/12/18 11:51 Freq: NEEDED Status: Active Protocol: Document 08/12/18 11:04 AB (Rec: 08/12/18 12:09 AB [id number]) Orientation Orientation/Cognition Level of Alertness Alert Orientation Name Age Place Situation Language Function Ability No Deficits Noted Safety Awareness Decreased Safety Awareness Memory Description Short Term Impaired Gross Range of Motion Lower Extremity ROM Assessment Within Functional Limits Strength Lower Extremity Strength Assessment Bilaterally Impaired Comments Strength Comments RLE : 3+/5 LLE: 4-/5 Coordination Assessment Gross Coordination Gross Coordination WNL Sensation Assessment Sensation Light Touch Impaired Sensation Description Numbness Comments Sensation Comments c/o decrease sensation on RLE Muscle Tone Muscle Tone WNL Yes M6 PT-IP Treatment Start: 08/12/18 11:51 Freq: NEEDED Status: Active Protocol: Document 08/13/18 14:20 [facility] (Rec: 08/13/18 14:24 [facility] [id number]) Physical Therapy Treatment Education Education Provided Precautions Safety M7 PT-IP Assessment and Plan Start: 08/12/18 11:51 Freq: NEEDED Status: Active Protocol: Document 08/13/18 14:20 [facility] (Rec: 08/13/18 14:24 [facility] [id number]) PT Summary Assessment and Plan Summary Impairments Pain ROM Strength Balance Coordination Sensation Tone Cognition Bed Mobility Transfers Gait Activity Tolerance Progress Towards Goals Slow Progress due to Pain Slow Progress due to Activity Tolerance Assessment Summary Pt still requires assistance with all activity and cueing for safety and precautions. He will require further rehab before returning home at this time as he is unsafe for returning home at this time d/ t significant inc risk of falls and requirement of assistance with all mobility skills Frequency of Treatment Frequency Of Treatment Twice a Day Treatment Plan Physical Therapy Treatment Plan Bed Mobility Training Transfer Training Gait Training Therapeutic Exercise Balance Retraining Post Op Education Discharge Planning Hot or Cold Pack Neuromuscular Re-ed Coordination Retraining Manual Therapy Other Recommendations and Next Treatment bed mobility, transfers, Focus ambulation, stair climbing Recommendations To Nursing Amount of Assist Needed 1 Person Assist Discharge Recommendations PT Discharge Recommendations SNF Rehab
[2018-08-13 15:00] VITALS: BP 129/69; PULSE 74; RESP 16; TEMP 36.9; O2SAT 96
--- NOTE | 2018-08-13 15:58 | CM.DPC ---
Addendum entered by Parris Marroquin LPN 08/14/18 08:52: RE: mental health history and PASRR specific info: pt confirms that he has long history of PTSD/not related related to but to events in life. He states he carries a dx of Bipolar ll and has been under mental health treatment for a long time. He lives at [facility] in [facility] which is under [facility] He states he used to get counseling with [facility] but is now under [facility]: [facility]: [phone]. He goes weekly for counseling sessions and his psychiatric medications are also managed in that setting. He did request that this DCP call the facility to let them know that he was in the hospital and was going to [facility] for rehab before returning home/done: left message 08/13 afternoon. PASRR completed with above information and outcome: No level II indicated. Discussed case over phone with Vinh Laguerre: PRODUCTION CONTROL COORDINATOR,PUMPER GAUGER APPRENTICE,Geriatric Mental Health Specialisit: PASRR contractor for [employer] : [phone]. She confirmed that PASRR was done correctly as pt is stable in terms of his mental health issues and under ongoing OUTPT treatment. Offered to fax the PASRR but she stated this would not be necessary. CM [employer] Travel Counselor Gini Clements was updated. Original Note: DCP: continued: case received and met this morning with pt after discussing case in Team Rounds. Introduced self and role. Pt is aware that the therapy team is recommending a snf stay before home as he is slow to mobilize and does have 20 steps to his second floor apt. SNF choice list: discussed: decision: [facility] is a bed is available. Referral: [facility] and account administrator John Medrano. Status: accepted. Discussed specifics of pt's history and including his mental health treatment in process of PASRR review: will document specifics of same tomorrow. P: [facility], likely tomorrow. The facility can set up van transport for 1400 chart picker tomorrow if pt is stable for the d/c. Will check in tomorrow and follow as noted.
--- NOTE | 2018-08-13 18:19 | OT.IP.TRT ---
Current Diagnoses Other spondylosis with radiculopathy, lumbosacral region (08/11/18) Spinal stenosis, lumbar region without neurogenic claudication (08/11/18) Dysphagia, unspecified (08/11/18) Surgery Performed Operation Date: 08/11/18 12:45 Actual Procedures p L3-4 Hemilaninectomy, L4-5 TLIF w/Posterior Instru. - Larry Buckley MD Occupational Therapy Treatment Note M2 OT-IP Current Condition Start: 08/12/18 17:45 Freq: Status: Active Protocol: Document 08/12/18 14:18 [facility] (Rec: 08/12/18 18:25 [facility] [id number]) Occupational Therapy Current Condition Current Condition Evaluation Date 08/12/18 Treatment Diagnosis L3-4 hemilaminectomy, L4-5 TLIF, muscle weakness Diagnosis Onset Date 08/11/18 Post Operative Precautions Lumbar Precautions Log Roll No Twisting Limit Bending Lifting Restriction of 10 lbs Gait Belt above Incisional Area Weight Bearing Status Weight Bearing Status Weight Bear as Tolerated M3 OT- IP Subjective and Pain Start: 08/12/18 17:45 Freq: Status: Active Protocol: Document 08/13/18 18:08 [facility] (Rec: 08/13/18 18:19 [facility] [id number]) OT- Subjective Occupational Therapy Visit Type Type Treatment Note Visit Start Time 17:55 Visit Stop Time 18:05 Total Visit Minutes 10 Occupational Therapy Visit Comments Patient Comments Pt refusing to shower today and states would rather shower in the AM. Pt did want to walk in the hallway. OT Pain Assessment Pain When Pain Assessed At Rest Pain Present Pain Present Denied Pain M4 OT- IP ADL's Start: 08/12/18 17:45 Freq: Status: Active Protocol: Document 08/12/18 14:18 [facility] (Rec: 08/12/18 18:25 [facility] [id number]) OT ADL-Grooming Comments OT Grooming Comments Not completed. OT ADL-Dressing General Eval Lower Body Dressing Ability Minimal Assistance Comments OT Dressing Comments Pt able to comfortable cross his legs over to don/doff socks, however was easier to use socks aid to don/doff sock . OT ADL-Toileting Comments OT Toileting Comments Pt educated can use FWW to stand over the toilet to urinate. Also better to stand with wipe after a bowel movement. OT ADL-Bathing Comments OT Bathing Comments To try tomorrow. M5 OT- IP IADL's Start: 08/12/18 17:45 Freq: Status: Active Protocol: Document 08/12/18 14:18 [facility] (Rec: 08/12/18 18:25 [facility] [id number]) OT-Instrumental Activities of Daily Living Home Safety Awareness Ability to Problem Solve Emergency Unable to Problem Solve Situations Home Safety Comments Pt needing increased time to solve home safety, not sure what to do in case of toilet overflowing, and what to do in case of a fire in the oven. Medication Management Medication Management Comments Pt states does all his medications, money management, and drives. M6 OT- IP Functional Cognition Start: 08/12/18 17:45 Freq: Status: Active Protocol: Document 08/13/18 18:08 [facility] (Rec: 08/13/18 18:19 [facility] [id number]) Cognitive Factors Limiting Selfcare Function Cognitive Ability Level of Alertness Alert Patient Orientation Name Place Situation Attention Span Ability Capable of Focused Attention Capable of Sustained Attention Ability to Follow Commands Able to Follow One Step Commands Memory Description Short Term Impaired Safety Awareness Decreased Ability to Apply Precautions Underestimates Need for Assistance Problem Solving Ability Needs Assist to Identify Solutions Cognitive Comments Cognitive Assessment Comments Pt able to recall all precautions, pt still having difficulty with safety awareness with FWW use and tends to have FWW either too close or too far away. M7 OT- IP Mobility and Balance Start: 08/12/18 17:45 Freq: Status: Active Protocol: Document 08/13/18 18:08 [facility] (Rec: 08/13/18 18:19 [facility] [id number]) OT-Transfer Assessment Sit to and From Stand Sit to and from Stand Minimal Assistance Transfers Transfer Ability Minimal Assistance Technique Transfer Destination Chair Transfer Technique Stand Step Pivot Devices Transfer Assistive Devices Gait Belt Front Wheeled Walker Comments Mobility Comments Pt still needing cues for hip hinging when coming to stand and to remember to use BUE to push up on the armrests of the recliner to assist to stand. M8 OT- IP Objective Assessments Start: 08/12/18 17:45 Freq: Status: Active Protocol: Document 08/12/18 14:18 [facility] (Rec: 08/12/18 18:25 [facility] [id number]) OT Gross Range of Motion Upper Extremity Range of Motion Assessment Within Functional Limits OT Strength Comments Strength Comments LUE 4+/5, RUE 4/5 OT-Muscle Tone Assessment Muscle Tone WNL Yes M9 OT- IP Assessment and Plan Start: 08/12/18 17:45 Freq: Status: Active Protocol: Document 08/13/18 18:08 [facility] (Rec: 08/13/18 18:19 [facility] [id number]) OT Summary Assessment and Plan Potential Rehabilitation Potential Good Analytic Complexity at Evaluation Low Summary OT Impairments Pain Strength Balance Functional Cognition Functional Mobility Grooming Dressing Toileting Bathing Toilet Transfers Shower Transfers Progress Towards Goals Slow Progress due to Pain Slow Progress due to Medical Issues Slow Progress due to Activity Tolerance Slow Progress due to Cognition Assessment Summary Pt will benefit from skilled rehab to continue to educate pt on back precaution, safety with FWW, and incorporation of back precautions for ADl needs. Goals Grooming Goal Independent Dressing Goal Independent Toileting Goal Independent Bathing Goal Standby Assistance Toilet Transfer Goal Independent Shower Transfer Goal Standby Assistance Patient/Caregiver Education Goal Demonstrate Post-Op Precautions Days to Meet Goals 5 Frequency of Treatment Frequency Of Treatment Once a Day Treatment Plan OT Treatment Plan ADL Training Functional Cognition Training Functional Mobility Patient/Family Education Discharge Planning Other Treatment Recommendations and Next Shower Treatment Focus Discharge Recommendations OT Discharge Recommendations SNF Rehab
[2018-08-13] MEDS: DONEPEZIL 5 MG TABLET PO (20:47)
[2018-08-13] MEDS: MELATONIN 3 MG TABLET 18 MG PO (20:49)
[2018-08-13] MEDS: LOVASTATIN 20 MG TABLET 40 MG PO (20:49)
[2018-08-13] MEDS: SENNOSIDES 8.6 MG TABLET 17.2 MG PO (20:53)
[2018-08-13 23:58] VITALS: BP 150/61; PULSE 76; RESP 20; TEMP 36.8; O2SAT 97
[2018-08-14 07:30] VITALS: BP 148/74; PULSE 72; RESP 20; TEMP 36.7; O2SAT 100
[2018-08-14] MEDS: HYDROCODONE/ACET 10/325 TABLET 1 TAB PO ×2 (07:40→13:29)
[2018-08-14] MEDS: HYDROMORPHONE 0.5 MG INJ IV (08:35)
[2018-08-14 08:49] VITALS: BP 156/77; PULSE 82
[2018-08-14] MEDS: LISINOPRIL 10 MG TABLET PO (08:49)
[2018-08-14] MEDS: DOCUSATE 100 MG CAPSULE PO (08:52)
[2018-08-14] MEDS: lamoTRIgine 100 MG TABLET PO (08:53)
[2018-08-14] MEDS: CYCLOBENZAPRINE 10 MG TABLET PO (08:53)
[2018-08-14] MEDS: buPROPion SR 150 MG TAB PO (08:53)
[2018-08-14] MEDS: MEMANTINE HCL 5 MG TABLET 10 MG PO (08:54)
[2018-08-14] MEDS: GABAPENTIN 600 MG TABLET PO (08:54)
[2018-08-14] MEDS: PARoxetine 20 MG TABLET PO (08:54)
[2018-08-14] MEDS: SODIUM CHLORIDE 0.9% FLUSH 10 ML IV (08:54)
--- NOTE | 2018-08-14 09:08 | CM.DPC ---
Addendum entered by Parris Marroquin LPN 08/14/18 10:25: PASRR: faxed to [facility], placed into snf packet. copy to [facility] for scan to EMR. Addendum entered by Parris Marroquin LPN 08/14/18 10:20: Dr. Torres has now cleared pt for d/c to snf setting. Orders and dc summary are faxed to [facility] and vm is left for [facility] cognos bi administrator John gonzalez and with a request for a confirmation call back. Will check in with pt and follow prn until he leaves. Original Note: DCP: continued: Spoke with ortho EMELYN Iraheta this morning re specifics of the dc plan. She expects Dr. Torres to round later today but will be available to do the snf d/c orders if need be. At this point [facility] is planning a w/c van transport for 1400...will follow closely. EDUARDO Estrada is updated and will alert ANNE Sosa to the d/c plan.
--- NOTE | 2018-08-14 10:03 | P.DS_ITS ---
History of Present Illness Date Patient Seen: 08/14/18 Time Patient Seen: 10:01 Chief complaint: Translaminar Interbody Fusion/Laminotomy Narrative: The history and physical are contained in the chart in a previously completed note. Please refer to that note for this information. Discharge Providers Date of admission: 08/11/18 10:55 Discharge Date: 08/14/18 Primary care physician: Kaylie Malik MD Consults: 07/28/18 12:11 Consult to Pastoral Services Routine Comment: TLIF 08/11/18 08/11/18 17:44 Consult to Pastoral Services Routine Comment: admit assessment 08/11/18 18:34 Consult to Discharge Planning Routine Comment: Consult to Physical Therapy Evaluate & Treat Comment: Physician Instructions: Evaluate and Treat 08/11/18 18:55 Consult to Occupational Therapy Evaluate & Treat Comment: Physician Instructions: Evaluate and treat Discharge provider: Rajat Torres MD Summary Discharge Diagnosis: 1. Lumbar stenosis 2. Lumbar spondylosis 3. Post hemorrhagic anemia 4. Chronic pain Exam Vital Signs (past 8 hours): - 08/14/18 07:30 08/14/18 08:49 Temperature 98.1 F Pulse Rate 72 82 Respiratory Rate 20 Blood Pressure 148/74 H 156/77 H Pulse Oximetry 100 Oxygen Delivery Method Room Air Oxygen Flow Rate 0 Narrative Exam Narrative: Back wound is dressed with no drainage on the bandage. There is no surrounding erythema. Light touch is intact in both lower extremities. Objective Labs Result Diagrams: 08/12/18 04:36 Discharge Plan Discharge Plan Patient Disposition: SNF Transfer to: [facility] Under care of provider: Kaylie Yin Transportation: Facility vehicle I certify the postop hospital residential care is medically necessary on a continuing basis for any conditions for which he/ she received care during this hospitalization.: Yes The receiving facility has agreed to accept transfer and provide medical treatment.: Yes Discharge Med Rec/Prescriptions Prescriptions: New hydrocodone-acetaminophen 10-325 mg Tablet 1 tab PO Q4HR PRN (Reason: Pain, Moderate (4-6)) Qty: 60 RF: 0 hydromorphone 2 mg Tablet 2 mg PO Q4HR PRN (Reason: Pain, Severe (7-10)) Qty: 30 RF: 0 Continued cyclobenzaprine 10 mg Tablet 10 mg PO BID RF: 0 ziprasidone HCl [Geodon] 80 mg Capsule 80 mg PO BEDTIME RF: 0 donepezil 5 mg Tablet 5 mg PO BEDTIME RF: 0 lovastatin 40 mg Tablet 40 mg PO QPM RF: 0 aspirin 81 mg Tablet,Delayed Release (Dr/Ec) 81 mg PO DAILY RF: 0 paroxetine HCl 20 mg Tablet 20 mg PO DAILY RF: 0 esomeprazole magnesium [Nexium] 40 mg Capsule,Delayed Release(Dr/Ec) 40 mg PO QPM RF: 0 buspirone 10 mg Tablet 10 mg PO BID RF: 0 ranitidine HCl 300 mg Capsule 300 mg PO BEDTIME RF: 0 lisinopril 10 mg Tablet 10 mg PO DAILY RF: 0 gabapentin 300 mg Capsule 600 mg PO TID RF: 0 lamotrigine 100 mg Tablet 100 mg PO BID RF: 0 bupropion HCl 150 mg Tablet Extended Release 24 Hr 150 mg PO QAM RF: 0 memantine [Namenda] 10 mg Tablet 10 mg PO BID RF: 0 Discontinued naproxen 250 mg Tablet 1,000 mg PO DAILY PRN (Reason: Pain) RF: 0 tramadol 50 mg Tablet 50 mg PO Q6H PRN (Reason: Pain) RF: 0 Follow up/Referrals: Larry Buckley MD [Physician] - 2 Weeks Kaylie Malik MD [Primary Care Provider] - Discharge Health Status Multidrug resistant organism: No MDRO Precautions: Spelter Provider Discharge Instructions Diet: Diet as Tolerated and Regular Liquid consistency: Normal/Thin Food texture: Regular Activity: Ambulate as tolerated Cold/Heat Therapy: Ice to surgical site for 15 minutes of every hour as needed for pain. Skin/Wound/Dressing Care Report to your healthcare provider any signs of infection, such as:: chills, fever, night sweats, increased pain, unusual drainage and unusual redness Dressing: Keep dressing clean and dry. Special Rehabilitation Services Reason for rehabilitation: Post-operative therapy Rehab type: Physical therapy and Occupational therapy Visit Report/Discharge Packet Instructions: DI for Transforaminal Lumbar Interbody Fusion Stand Alone Forms: Surgery Discharge Discharge Data Primary Care Provider: Kaylie Malik Attending Provider: Larry Buckley Admit Date/Time: 08/11/18 10:55
--- NOTE | 2018-08-14 11:24 | PC.NURSE ---
Received OOB in chair, awake, alert, oriented. VSS. Sp02>/90% on RA. Lungs CTA bilat. PIV flushed and patent. Reports 11/20 pain. Assessed and medicated. Minimal relief. Remedicated after appropriate interval with IV hydromorphone. Similarly, minimal effect (pain 08/20). OT assisted to shower. Ambulating with FWW. Assisted back to bed. Taking p.o. well. Voids per urinal No BM this shift. Discussed plan of care, pain-management regimen, and pending discharge to LTF. Bed in low position, side rails up, and call light in reach.
--- NOTE | 2018-08-14 12:04 | PT.IPTN ---
Current Diagnoses Other spondylosis with radiculopathy, lumbosacral region (08/11/18) Spinal stenosis, lumbar region without neurogenic claudication (08/11/18) Dysphagia, unspecified (08/11/18) Surgery Performed Operation Date: 08/11/18 12:45 Actual Procedures p L3-4 Hemilaninectomy, L4-5 TLIF w/Posterior Instru. - Larry Buckley MD Physical Therapy Treatment Note M2 PT-IP Current Condition Start: 08/12/18 11:51 Freq: NEEDED Status: Active Protocol: Document 08/12/18 11:04 AB (Rec: 08/12/18 12:09 AB [id number]) Physical Therapy Current Condition Current Condition Evaluation Date 08/12/18 Treatment Diagnosis s/p L4-5 fusion/lami; L3-4 hemilami; difficulty in walking Onset Date 08/11/18 Precautions Lumbar Precautions Log Roll No Twisting Limit Bending Lifting Restriction of 10 lbs Gait Belt above Incisional Area M3 PT-IP Subjective Start: 08/12/18 11:51 Freq: NEEDED Status: Active Protocol: Document 08/14/18 12:00 GGD (Rec: 08/14/18 12:04 GGD [id number]) Subjective Physical Therapy Visit Type Type Treatment Note Visit Start Time 11:45 Visit Stop Time 12:00 Total Visit Minutes 15 Number of TRAVEL PTA Visits 1 Physical Therapy Visit Comments Patient Comments Pt would like get out of bed. Therapy Pain Assessment Pain When Pain Assessed At Rest Pain Present Pain Present Pain Reported M4 PT-IP Mobility and Gait Start: 08/12/18 11:51 Freq: NEEDED Status: Active Protocol: Document 08/14/18 12:00 GGD (Rec: 08/14/18 12:04 GGD [id number]) PT-Bed Mobility Assessment Supine to Sit Supine to Sit Minimal Assistance PT-Transfer Assessment Sit to and From Stand Sit to and from Stand Minimal Assistance Use of Upper Extremities Equipment Transfer Assistive Device Front Wheeled Walker Orthotic/Prosthetic Devices or Brace: No Transfers Transfer Destination Chair Transfer Ability Level of Assist Minimal Assistance 1 Person Assistance Use of Upper Extremities Gait Assessment Gait Gait Assistance Required: Contact Guard Assist Minimum Assistance Distance (Feet) 100 Able to Maintain Weight Bearing Status Yes During Gait Assistive Devices Assistive Device Gait Belt Front Wheeled Walker Orthotic/Prosthetic Devices or Brace: No Gait Deviations General Gait Pattern Antalgic Decreased Stride Length Decreased Feet Clearance Factors Limiting Gait Function Factors Limiting Gait Function Decreased Activity Tolerance Decreased Strength Limited Range of Motion Pain Poor Balance Poor Safety Awareness Comments Gait Comments PT need mod cues for FWW management and foot clearance. M5 PT-IP Objective Assessments Start: 08/12/18 11:51 Freq: NEEDED Status: Active Protocol: Document 08/12/18 11:04 AB (Rec: 08/12/18 12:09 AB [id number]) Orientation Orientation/Cognition Level of Alertness Alert Orientation Name Age Place Situation Language Function Ability No Deficits Noted Safety Awareness Decreased Safety Awareness Memory Description Short Term Impaired Gross Range of Motion Lower Extremity ROM Assessment Within Functional Limits Strength Lower Extremity Strength Assessment Bilaterally Impaired Comments Strength Comments RLE : 3+/5 LLE: 4-/5 Coordination Assessment Gross Coordination Gross Coordination WNL Sensation Assessment Sensation Light Touch Impaired Sensation Description Numbness Comments Sensation Comments c/o decrease sensation on RLE Muscle Tone Muscle Tone WNL Yes M6 PT-IP Treatment Start: 08/12/18 11:51 Freq: NEEDED Status: Active Protocol: Document 08/14/18 12:00 GGD (Rec: 08/14/18 12:04 GGD [id number]) Physical Therapy Treatment Education Education Provided Precautions Safety M7 PT-IP Assessment and Plan Start: 08/12/18 11:51 Freq: NEEDED Status: Active Protocol: Document 08/14/18 12:00 GGD (Rec: 08/14/18 12:04 GGD [id number]) PT Summary Assessment and Plan Summary Assessment Summary Pt is slow moving. He need min A for bed mobility. He is slow with gait with unsteadiness. He has poor safety awareness. Frequency of Treatment Frequency Of Treatment Twice a Day Treatment Plan Physical Therapy Treatment Plan Bed Mobility Training Transfer Training Gait Training Therapeutic Exercise Balance Retraining Post Op Education Discharge Planning Hot or Cold Pack Neuromuscular Re-ed Coordination Retraining Manual Therapy Other Recommendations and Next Treatment bed mobility, transfers, Focus ambulation, stair climbing Recommendations To Nursing Amount of Assist Needed 1 Person Assist Discharge Recommendations PT Discharge Recommendations SNF Rehab
[2018-08-14] MEDS: ACETAMINOPHEN 325 MG TABLET 650 MG PO (12:07)
--- NOTE | 2018-08-14 16:41 | OT.IP.TRT ---
Current Diagnoses Other spondylosis with radiculopathy, lumbosacral region (08/11/18) Spinal stenosis, lumbar region without neurogenic claudication (08/11/18) Dysphagia, unspecified (08/11/18) Surgery Performed Operation Date: 08/11/18 12:45 Actual Procedures p L3-4 Hemilaninectomy, L4-5 TLIF w/Posterior Instru. - Larry Buckley MD Occupational Therapy Treatment Note M2 OT-IP Current Condition Start: 08/12/18 17:45 Freq: Status: Active Protocol: Document 08/12/18 14:18 [facility] (Rec: 08/12/18 18:25 [facility] [id number]) Occupational Therapy Current Condition Current Condition Evaluation Date 08/12/18 Treatment Diagnosis L3-4 hemilaminectomy, L4-5 TLIF, muscle weakness Diagnosis Onset Date 08/11/18 Post Operative Precautions Lumbar Precautions Log Roll No Twisting Limit Bending Lifting Restriction of 10 lbs Gait Belt above Incisional Area Weight Bearing Status Weight Bearing Status Weight Bear as Tolerated M3 OT- IP Subjective and Pain Start: 08/12/18 17:45 Freq: Status: Active Protocol: Document 08/14/18 16:35 CGR (Rec: 08/14/18 16:40 CGR [email or web address]) OT- Subjective Occupational Therapy Visit Type Type Progress Note Visit Start Time 09:05 Visit Stop Time 09:45 Total Visit Minutes 40 Occupational Therapy Visit Comments Patient Comments I do feel better after showering. OT Pain Assessment Pain When Pain Assessed At Rest Pain Present Pain Present Pain Reported Location lower back Intensity 7 Scale Used Numeric (1 - 10) Management Techniques Re-positioning Timing of Activity with Medications M4 OT- IP ADL's Start: 08/12/18 17:45 Freq: Status: Active Protocol: Document 08/14/18 16:35 CGR (Rec: 08/14/18 16:40 CGR [email or web address]) OT ADL-Grooming General Evaluation Grooming Ability Standby Assistance Areas Needing Assistance Combing/Brushing Hair Comments OT Grooming Comments Seated in chair after shower. OT ADL-Oral Care Comments Oral Care Comments Declined OT ADL-Dressing General Eval Upper Body Dressing Ability Standby Assistance Lower Body Dressing Ability Total Assistance Areas Needing Assistance Socks OT ADL-Bathing Bathing Type Bathing Type Shower General Evaluation Bathing Ability Minimal Assistance Areas Needing Assistance Retrieving/Setting Up Items Wash/Dry Back Wash/Dry Lower Extremities Devices Bathing Equipment Hand Held Shower Sprayer Shower Chair without Arms Grab Bars M5 OT- IP IADL's Start: 08/12/18 17:45 Freq: Status: Active Protocol: Document 08/12/18 14:18 [facility] (Rec: 08/12/18 18:25 [facility] [id number]) OT-Instrumental Activities of Daily Living Home Safety Awareness Ability to Problem Solve Emergency Unable to Problem Solve Situations Home Safety Comments Pt needing increased time to solve home safety, not sure what to do in case of toilet overflowing, and what to do in case of a fire in the oven. Medication Management Medication Management Comments Ptstates does all his medications, money management, and drives. M6 OT- IP Functional Cognition Start: 08/12/18 17:45 Freq: Status: Active Protocol: Document 08/13/18 18:08 [facility] (Rec: 08/13/18 18:19 [facility] [id number]) Cognitive Factors Limiting Selfcare Function Cognitive Ability Level of Alertness Alert Patient Orientation Name Place Situation Attention Span Ability Capable of Focused Attention Capable of Sustained Attention Ability to Follow Commands Able to Follow One Step Commands Memory Description Short Term Impaired Safety Awareness Decreased Ability to Apply Precautions Underestimates Need for Assistance Problem Solving Ability Needs Assist to Identify Solutions Cognitive Comments Cognitive Assessment Comments Pt able to recall all precautions, pt still having diffuculty with safety awareness with FWW use and tends to have FWW either too close or too far away. M7 OT- IP Mobility and Balance Start: 08/12/18 17:45 Freq: Status: Active Protocol: Document 08/14/18 16:35 CGR (Rec: 08/14/18 16:40 [facility] [email or web address]) OT-Transfer Assessment Sit to and From Stand Sit to and from Stand Contact Guard Assistance Transfers Transfer Ability Contact Guard Assistance Technique Transfer Destination Chair Shower Stall Transfer Technique Stand Step Pivot Devices Transfer Assistive Devices Gait Belt Front Wheeled Walker OT- Gait Assessment Gait Gait Assistance Required: Contact Guard Assist Assistive Devices Assistive Device Gait Belt Front Wheeled Walker Comments Gait Ability Comments Pt with short steps. Able to take larger steps but reports pain. OT- Balance Assessment Sitting Balance and Reactions Static Sitting Balance Ability Good Dynamic Sitting Balance Ability Fair Standing Balance and Reactions Static Standing Balance Ability Fair M8 OT- IP Objective Assessments Start: 08/12/18 17:45 Freq: Status: Active Protocol: Document 08/12/18 14:18 [facility] (Rec: 08/12/18 18:25 [facility] [email or web address]) OT Gross Range of Motion Upper Extremity Range of Motion Assessment Within Functional Limits OT Strength Comments Strength Comments LUE 4+/5, RUE 4/5 OT-Muscle Tone Assessment Muscle Tone WNL Yes M9 OT- IP Assessment and Plan Start: 08/12/18 17:45 Freq: Status: Active Protocol: Document 08/14/18 16:35 CGR (Rec: 08/14/18 16:40 [facility]GR [email or web address]) OT Summary Assessment and Plan Potential Rehabilitation Potential Good Analytic Complexity at Evaluation Low Summary OT Impairments Pain Strength Balance Functional Cognition Functional Mobility Grooming Dressing Toileting Bathing Toilet Transfers Shower Transfers Progress Towards Goals Slow Progress due to Pain Slow Progress due to Medical Issues Slow Progress due to Activity Tolerance Slow Progress due to Cognition Assessment Summary Pt performed shower in todays session with positive result of decreased pain and improved mood. Pt Needed encouragement to perform and some help with the task. Pt will continue to benefit from OT services. Goals Grooming Goal Independent Dressing Goal Independent Toileting Goal Independent Bathing Goal Standby Assistance Toilet Transfer Goal Independent Shower Transfer Goal Standby Assistance Patient/Caregiver Education Goal Demonstrate Post-Op Precautions Days to Meet Goals 4 Frequency of Treatment Frequency Of Treatment Once a Day Treatment Plan OT Treatment Plan ADL Training Functional Cognition Training Functional Mobility Patient/Family Education Discharge Planning Other Treatment Recommendations and Next Shower Treatment Focus Discharge Recommendations OT Discharge Recommendations SNF Rehab
== END 2018-08-14 14:23 | DRG 455 ==
LOC: AC 12:23 → ICU 13:40
PROVIDERS: Orthopaedic Surgery; Admitting Provider Anesthesiology; PCP Family Medicine; Visit Provider Orthopaedic Surgery Orthopaedic Surgery of the Spine
PROC: 0SG00AJ Fusion of Lumbar Vertebral Joint with Interbody Fusion Device, Posterior Approach, Anterior Column, Open Approach (ICD-10-PCS; principal; 2018-08-11 12:45)
DX: M48.061 Spinal stenosis, lumbar region without neurogenic claudication (principal); M47.26 Other spondylosis with radiculopathy, lumbar region; E78.5 Hyperlipidemia, unspecified; K21.9 Gastro-esophageal reflux disease without esophagitis; F32.9 Major depressive disorder, single episode, unspecified; J45.909 Unspecified asthma, uncomplicated; F42.9 Obsessive-compulsive disorder, unspecified; F41.9 Anxiety disorder, unspecified; R27.0 Ataxia, unspecified; I10 Essential (primary) hypertension; R35.0 Frequency of micturition; G47.33 Obstructive sleep apnea (adult) (pediatric); G89.29 Other chronic pain
CPT/HCPCS: 72100; 76000; 85014; 85018; 87797; 94660; 97116; 97162; 97165; 97530; 97535; C1776; C9290; J0330; J1100; J1170; J2250; J2405; J2704; J3010